=== PATIENT | female | born 1985 | race Caucasian/White ===

== ENCOUNTER 2019-03-25 13:23 | Day surgery (SDC) | payer MEDICAID ==
[2019-03-25] MEDS ORDERED: KETOROLAC 60 MG/2 ML VIAL IM STA (13:38)
--- NOTE | 2019-03-25 13:40 | ED Physician Documentation ---
PD HPI ABD PAIN - Stated complaint Stated Complaint: FEMALE - Chief complaint Chief Complaint: Abd Pain - History obtained from History obtained from: Patient - History of Present Illness Timing - onset: Last night (Previously healthy 33-year-old woman status post tubal ligation about a year ago and with last menses about 2 weeks ago, normal time and normal flow developed sudden onset pelvic pain last night. Pain is worse when she has a bowel movement but her bowel movements have been fairly normal otherwise. No rectal pain. No vaginal discharge or bleeding. She is never had this before. No fevers or chills. Some relief with Tylenol and ibuprofen but incomplete.) Review of Systems Ten Systems: 10 systems reviewed and negative Constitutional: denies: Fever, Chills Cardiac: denies: Chest pain / pressure, Palpitations Respiratory: denies: Dyspnea, Cough PD PAST MEDICAL HISTORY - Allergies Allergies/Adverse Reactions: Allergies Allergy/AdvReac Type Severity Reaction Status Date / Time No Known Drug Allergies Allergy Verified 03/25/19 13:27 PD ED PE NORMAL - Vitals Vital signs reviewed: Yes - General General: Alert and oriented X 3, No acute distress - Neck Neck: Supple, no meningeal sign, No bony TTP - Cardiac Cardiac: RRR, No murmur - Respiratory Respiratory: No respiratory distress, Clear bilaterally - Abdomen Abdomen: Normal bowel sounds, Other (Tenderness in the suprapubic area and left pelvis without surgical signs) - Back Back: No CVA TTP, No spinal TTP - Derm Derm: Normal color, Warm and dry - Neuro Neuro: Alert and oriented X 3, Normal speech Results - Vitals Vitals: Vital Signs - 24 hr 03/25/19 03/25/19 03/25/19 13:27 15:02 16:05 Temperature 36.8 C Heart Rate 80 61 60 Respiratory 15 16 16 Rate Blood Pressure 123/71 109/71 102/64 O2 Saturation 100 100 100 03/25/19 17:50 Temperature Heart Rate 62 Respiratory 16 Rate Blood Pressure 93/76 O2 Saturation 100 Oxygen O2 Source Room air - Labs Labs: Laboratory Tests 03/25/19 03/25/19 03/25/19 13:52 14:01 14:01 WBC 4.4 L RBC 3.56 L Hgb 10.9 L Hct 32.7 L MCV 91.9 MCH 30.6 MCHC 33.3 RDW 12.3 Plt Count 185 MPV 10.2 Neut # (Auto) 2.6 Lymph # (Auto) 1.3 L [place] # (Auto) 0.5 Eos # (Auto) 0.0 Baso # (Auto) 0.0 Absolute Nucleated RBC 0.00 Nucleated RBC % 0.0 Sodium 136 Potassium 3.7 Chloride 105 Carbon Dioxide 22 Anion Gap 9.0 BUN 8 Creatinine 0.7 Estimated GFR (MDRD) 96 Glucose 83 Calcium 9.0 Total Bilirubin 0.9 AST 18 ALT 14 Alkaline Phosphatase 33 L Total Protein 7.3 Albumin 4.4 Globulin 2.9 Albumin/Globulin Ratio 1.5 Lipase 22 HCG, Quant Urine Color YELLOW Urine Clarity CLEAR Urine pH 6.0 Ur Specific [place] 1.010 Urine Protein NEGATIVE Urine Glucose (UA) NEGATIVE Urine Ketones NEGATIVE Urine Occult Blood NEGATIVE Urine Nitrite NEGATIVE Urine Bilirubin NEGATIVE Urine Urobilinogen 0.2 (NORMAL) Ur Leukocyte Esterase NEGATIVE Ur Microscopic Review NOT INDICATED Urine Culture Comments NOT INDICATED Urine HCG, Qual POSITIVE Blood Type Blood Type Recheck Antibody Screen Crossmatch IS Only 03/25/19 03/25/19 03/25/19 14:01 14:43 14:43 WBC RBC Hgb Hct MCV MCH MCHC RDW Plt Count MPV Neut # (Auto) Lymph # (Auto) [place] # (Auto) Eos # (Auto) Baso # (Auto) Absolute Nucleated RBC Nucleated RBC % Sodium Potassium Chloride Carbon Dioxide Anion Gap BUN Creatinine Estimated GFR (MDRD) Glucose Calcium Total Bilirubin AST ALT Alkaline Phosphatase Total Protein Albumin Globulin Albumin/Globulin Ratio Lipase HCG, Quant 2146.00 Urine Color Urine Clarity Urine pH Ur Specific [place] Urine Protein Urine Glucose (UA) Urine Ketones Urine Occult Blood Urine Nitrite Urine Bilirubin Urine Urobilinogen Ur Leukocyte Esterase Ur Microscopic Review Urine Culture Comments Urine HCG, Qual Blood Type Cancelled Blood Type Recheck O NEGATIVE Antibody Screen Cancelled Crossmatch IS Only 03/25/19 03/25/19 15:20 15:41 WBC RBC Hgb Hct MCV MCH MCHC RDW Plt Count MPV Neut # (Auto) Lymph # (Auto) [place] # (Auto) Eos # (Auto) Baso # (Auto) Absolute Nucleated RBC Nucleated RBC % Sodium Potassium Chloride Carbon Dioxide Anion Gap BUN Creatinine Estimated GFR (MDRD) Glucose Calcium Total Bilirubin AST ALT Alkaline Phosphatase Total Protein Albumin Globulin Albumin/Globulin Ratio Lipase HCG, Quant Urine Color Urine Clarity Urine pH Ur Specific [place] Urine Protein Urine Glucose (UA) Urine Ketones Urine Occult Blood Urine Nitrite Urine Bilirubin Urine Urobilinogen Ur Leukocyte Esterase Ur Microscopic Review Urine Culture Comments Urine HCG, Qual Blood Type O NEGATIVE Cancelled Blood Type Recheck Antibody Screen NEGATIVE Cancelled Crossmatch IS Only See Detail - Rads (name of study) Pelvic sono Radiology: EMP read contemporaneously (Right ovarian mass measuring about 4 cm around, no IUP. Free fluid in the pelvis.) Procedures - General procedure General procedure: She was difficult for IV access, I personally placed a 20-gauge IV in the right external jugular after ChloraPrep which corby well and we corby the blood type off of that and flush well. PD MEDICAL DECISION MAKING - ED course ED course: 33-year-old woman with history of tubal ligation presents with pelvic pain, found to have a positive urine test and followed by a serum beta-hCG that was above the discriminatory zone. Ultrasound did not show an IUP and although the radiologist did not think the findings were clearly construction sales representative of an ectopic, the lack of an IUP and the right ovarian mass are very concerning and as such Dr. Kellogg saw her and will take her to the OR. The question of whether or not she should receive RhoGam came up and Dr. Kellogg felt that she should. Dr. Kellogg also requested that we ready blood in case she were to decompensate, although she remained hemodynamically stable here. Departure - Departure Disposition: [facility] Clinical Impression: Ectopic without intrauterine Qualifiers: Location of ectopic : ovarian Laterality: right Qualified Code(s): O00.201 - Right ovarian without intrauterine Condition: Fair
[2019-03-25 14:02] LABS: BILIRUBIN,URINE NEGATIVE (NEGATIVE); GLUCOSE, URINE (UA) NEGATIVE (NEGATIVE); HCG UR QUAL POSITIVE; KETONES,URINE (UA) NEGATIVE (NEGATIVE); LEUKOCYTE ESTERASE, URINE NEGATIVE (NEGATIVE); NITRITE,URINE NEGATIVE (NEGATIVE); OCCULT BLOOD,URINE NEGATIVE (NEGATIVE); PROTEIN,URINE NEGATIVE (NEGATIVE); UROBILINOGEN,URINE 0.2 (NORMAL) E.U./dL (NORMAL)
[2019-03-25 14:03] LABS: CLARITY,URINE CLEAR (CLEAR)
[2019-03-25 14:06] LABS: BASOPHILS % (AUTO) 0.2 %; EOSINOPHILS % (AUTO) 0.5 %; HGB - HEMOGLOBIN 10.9 g/dL (12.0-16.0); LYMPHOCYTES # (AUTO) 1.3 10^3/uL (1.5-3.5); LYMPHOCYTES % (AUTO) 29.1 %; MEAN CORPUSCULAR HEMOGLOBIN 30.6 pg (27.0-31.0); MEAN CORPUSCULAR HGB CONC 33.3 g/dL (32.0-36.0); MEAN CORPUSCULAR VOLUME 91.9 fL (81.0-99.0); MEAN PLATELET VOLUME 10.2 fL (7.9-10.8); MONOCYTES # (AUTO) 0.5 10^3/uL (0.0-1.0); MONOCYTES % (AUTO) 10.5 %; NEUTROPHILS # (AUTO) 2.6 10^3/uL (1.5-6.6); NEUTROPHILS % (AUTO) 59.2 %; PLT - PLATELET COUNT 185 10^3/uL (130-450); RED BLOOD COUNT 3.56 10^6/uL (4.20-5.40); RED CELL DISTRIBUTION WIDTH 12.3 % (12.0-15.0); WHITE BLOOD COUNT 4.4 x10^3/uL (4.8-10.8)
[2019-03-25] MEDS ORDERED: HYDROmorphone 1 MG/ML CARPUJECT IVP STA ×3 (14:18→16:51)
[2019-03-25 14:26] LABS: ALBUMIN 4.4 g/dL (3.2-5.5); ALBUMIN/GLOBULIN RATIO 1.5 (1.0-2.2); BILIRUBIN,TOTAL 0.9 mg/dL (0.2-1.0); CREATININE 0.7 mg/dL (0.4-1.0); TOTAL PROTEIN 7.3 g/dL (6.7-8.2)
[2019-03-25] MEDS ORDERED: RHO(D) IMMUNE GLOBULIN 300 MCG SYRINGE IM STA (16:46)
--- NOTE | 2019-03-25 16:57 | Ultrasound Report ---
Reason: L pelvic pain, pos HCG, post tubal ligation Procedure Date: 03/25/2019 Accession Number: [id number] / [id number] Procedure: US - OB First Trimester CPT Code: Final Report FULL RESULT: EXAM: FIRST TRIMESTER OBSTETRIC ULTRASOUND (Less than 11 weeks) EXAM DATE: 03/25/2019 04:05 PM. CLINICAL HISTORY: L pelvic pain, pos HCG, post tubal ligation. LMP: 03/12/2019. COMPARISONS: None. TECHNIQUE: Transabdominal and transvaginal ultrasound examination with static image documentation. CLINICAL DATES: EGA 1 week 6 days with LINA 12/17/2019 based on LMP. ASSESSMENT: Gestational Sac: None identified. MATERNAL STRUCTURES: Uterus: Anteverted. 9.3 x 5.2 x 6.8 cm. Endometrium 8 mm in thickness and normal in appearance.. Cervix: Closed. Right Ovary/Adnexa: The ovary measures 5.3 x 4.5 x 5.6 cm, volume 70 cc. 4.4 x 4.0 x 4.2 cm complex hemorrhagic appearing cyst with intermediate level diffuse internal echoes and innumerable wispy septations. Left Ovary/Adnexa: The ovary measures 2.3 x 1.5 x 1.9 cm, volume 3.4 cc. Unremarkable. Free Fluid: Minimal posteriorly and in the left adnexa. Other: None. IMPRESSION: 1. No intrauterine gestation is identified. 2. No high risk findings for ectopic gestation. 3. 4 cm complex hemorrhagic-appearing right ovarian cyst which could represent a hemorrhagic follicle or an endometrioma. 4. Correlate with serial quantitative beta hCG. 5. Six-week ultrasound follow-up would be of value to reassess the right adnexa. RADIA
[2019-03-25] MEDS ORDERED: PROPOFOL 200 MG/20 ML VIAL IVP ONE (17:27)
[2019-03-25] MEDS ORDERED: ROCURONIUM 50 MG/5 ML VIAL IVP ONE (17:27)
[2019-03-25] MEDS ORDERED: GLYCOPYRROLATE 1 MG/5 ML VIAL IVP ONE (17:27)
[2019-03-25] MEDS ORDERED: DEXAMETHASONE 4 MG/ML VIAL IVP ONE (17:27)
[2019-03-25] MEDS ORDERED: ACETAMINOPHEN 1,000 MG/100 ML 100 ML IV ONE (17:27)
[2019-03-25] MEDS ORDERED: MIDAZOLAM 2 MG/2 ML VIAL IVP ONE (17:27)
[2019-03-25] MEDS ORDERED: NEOSTIGMINE 1 MG/1 ML 10 ML MDV IVP ONE (17:27)
[2019-03-25] MEDS ORDERED: LIDOCAINE-MPF 2% 5 ML VIAL IM ONE (17:27)
[2019-03-25] MEDS ORDERED: fentaNYL 250 MCG/5 ML VIAL IVP ONE (17:27)
[2019-03-25] MEDS ORDERED: ceFAZolin 2 GM in SODIUM CHLORIDE 0.9% 100ML 100 ML IV STA (17:30)
[2019-03-25] MEDS ORDERED: LIDOCAINE MPF 2%-EPI 1:200000 20 ML VIAL ONE (17:40)
[2019-03-25] MEDS ORDERED: BUPIVACAINE 0.5% PF 30 ML VIAL ONE (17:40)
--- NOTE | 2019-03-25 17:44 | ANESTHESIA ---
Pre-Anesthesia VS, & Labs - Diagnosis Ectopic - Procedure Dx laparoscopy Vital Signs: Temp Pulse Resp BP Pulse Ox 36.8 C 61 16 109/71 100 03/25/19 13:27 03/25/19 15:02 03/25/19 15:02 03/25/19 15:02 03/25/19 15:02 Height 5 ft 6 in Weight (kg) 68.039 kg Body Mass Index 24.2 - NPO >8 hours - Is Patient ?: Yes - Lab Results Current Lab Results: Laboratory Tests 03/25/19 15:20: Blood Type O NEGATIVE, Antibody Screen NEGATIVE 03/25/19 14:43: Blood Type Recheck O NEGATIVE 03/25/19 14:43: Blood Type Cancelled, Antibody Screen Cancelled 03/25/19 14:01: HCG, Quant 2146.00 03/25/19 14:01: Sodium 136, Potassium 3.7, Chloride 105, Carbon Dioxide 22, Anion Gap 9.0, BUN 8, Creatinine 0.7, Estimated GFR (MDRD) 96, Glucose 83, Calcium 9.0, Total Bilirubin 0.9, AST 18, ALT 14, Alkaline Phosphatase 33 L, Total Protein 7.3, Albumin 4.4, Globulin 2.9, Albumin/Globulin Ratio 1.5, Lipase 22 03/25/19 14:01: WBC 4.4 L, RBC 3.56 L, Hgb 10.9 L, Hct 32.7 L, MCV 91.9, MCH 30.6, MCHC 33.3, RDW 12.3, Plt Count 185, MPV 10.2, Neut # (Auto) 2.6, Lymph # (Auto) 1.3 L, [place] # (Auto) 0.5, Eos # (Auto) 0.0, Baso # (Auto) 0.0, Absolute Nucleated RBC 0.00, Nucleated RBC % 0.0 Lab results reviewed: Yes Fish Bones: 03/25/19 14:01 03/25/19 14:01 Home Medications and Allergies Active Medications Cefazolin Sodium 2 gm/ Sodium (Chloride) 100 mls @ 200 mls/hr IV ONCE STA Stop: 03/25/19 17:59 Allergies/Adverse Reactions: Allergies Allergy/AdvReac Type Severity Reaction Status Date / Time No Known Drug Allergies Allergy Verified 03/25/19 13:27 Anes History & Medical History - Anesthetic History Anesthesia Complications: reports: No previous complications Family history of Anesthesia Complications: Denies Family history of Malignant Hyperthermia: Denies - Medical History Cardiovascular: reports: None Pulmonary: reports: None Gastrointestinal: reports: None Urinary: reports: None Neuro: reports: None Musculoskeletal: reports: None Endocrine/Autoimmune: reports: None Blood Disorders: reports: None Skin: reports: None Smoking Status: Never smoker Psychosocial: reports: No issues indicated Exam General: Alert, Oriented x3, Cooperative Dental: WNL Mouth Opening: Greater than 4 Fingerbreadths Neck Mobility: Normal Mallampati classification: I Thyromental Distance: greater than 6 cm Respiratory: Lungs clear Cardiovascular: Regular rate Plan Anesthesia Type: General Consent for Procedure(s) Verified and Reviewed: Yes Code Status: Attempt Resuscitation ASA classification: 1-Healthy patient Is this case an emergency?: Yes
[2019-03-25] MEDS ORDERED: LACTATED RINGERS 1,000 ML IV ONE ×2 (18:08→19:30)
[2019-03-25] MEDS: HYDROmorphone 1 MG/ML CARPUJECT ONE ×4 (20:04→20:30)
[2019-03-25] MEDS ORDERED: LORazepam 2 MG/ML VIAL ONE (20:13)
[2019-03-25] MEDS ORDERED: HYDROmorphone 1 MG/ML CARPUJECT ONE (20:24)
[2019-03-25] MEDS ORDERED: ONDANSETRON 4 MG/2 ML VIAL IVP PRN (20:28)
[2019-03-25] MEDS ORDERED: HYDROmorphone 0.5 MG/0.5 ML SYRINGE IVP PRN (20:28)
[2019-03-25] MEDS ORDERED: LORazepam 2 MG/ML VIAL IVP PRN (20:28)
[2019-03-25] MEDS ORDERED: oxyCODONE 5 MG TABLET PO PRN (20:28)
--- NOTE | 2019-03-25 20:32 | OPERATIVE REPORT ---
Operative Report - General Procedure Date: 03/25/19 Planned Procedure: Laproscopic removal of ectopic , bilateral salpingectomy, Possible right oophorectomy Pre-Op Diagnosis: Ectopic with Hemopertoneum previous Tubal ligation Procedure Performed: Laproscopic removal of right ectopic , bilateral salpingectomy, right oophorectomy Post Op Diagnosis: Right ectopic with Hemopertoneum - Procedure Note Primary Surgeon: Harpal Kellogg MD Anesthesia Provider: Rocky Dougherty CRNA Anesthesia Technique: General ET tube Pathology: Bilateral Tubes adn right ovare with large cyst IV Fluids (mL): 1,300 Estimated Blood Loss (mL): 100 Urine Output (mL): 50 Complications: none
--- NOTE | 2019-03-25 21:34 | PREOP HISTORY & PHYSICAL ---
DATE OF SERVICE: 03/25/2019 Physician: Harpal Kellogg MD IDENTIFICATION: The patient is a 33-year-old G9, P3, EAB 1, SAB 5 ectopic 1. Last menstrual period was 03/12/2019. CHIEF COMPLAINT: Abdominal pain. HISTORY OF PRESENT ILLNESS: The patient states that at 2000 last evening she developed abdominal serg n, which was quite severe in nature. Pain has become progressively worse with time. She relates florina t started in the right lower quadrant. She has a history of having a tubal ligation in 03/2018. She has no history of any other surgeries. She is noted to be Rh negative. PAST MEDICAL HISTORY: The patient denies any hypertensive, diabetic, cardiac or pulmonary disease. PAST SURGICAL HISTORY: Positive for tubal ligation without salpingectomy. She has also had a arthro scopy in the left knee. CURRENT MEDICATIONS: None. ALLERGIES: NONE KNOWN. HABITS: The patient denies use of alcohol, tobacco, street or addictive drugs. Does occasional THC. SOCIAL HISTORY: The patient lives with the father of the baby. They have been life partner for the l ast 5 years. She lives with her children. She works as a homemaker. FAMILY HISTORY: Positive for mother that had a CVA at 36 years of age, secondary to cardiac defect. Her grandparents are positive for cancer, which is lung, as well as lymphoma. REVIEW OF SYSTEMS: The patient denies any problems with her vision, hearing, chronic cough, palpitat ions, nausea, vomiting, joint pain or muscle weakness. PHYSICAL EXAMINATION GENERAL: The patient is a well-developed, well-nourished white female. VITAL SIGNS: Stable at this time. HEENT: Pupils are equal and round. Extraocular muscles intact. Thyroid is not palpably enlarged. HEART: Regular rate and rhythm without murmurs. LUNGS: Lung chambers clear without rales or wheezes. BACK: No spinal or CVA tenderness noted. ABDOMEN: Shows evidence of good bowel sounds; however, there is marked tenderness and rebound in the right lower quadrant. Ultrasound was performed, which showed evidence of a complex cyst in the righ t ovary. She has also had a quantitative hCG which is 2146. IMPRESSION A 33-year-old, G9, P3 female status post tubal ligation with an ectopic . PLAN: We will perform laparoscopic removal of the tubes and ectopic , possible right salpin go-oophorectomy, depending on how the involvement is. The risks and benefits were explained to the p atient including those, but not limited to bleeding, infection, injury to pelvic organs, which includ e the uterus, tubes, ovaries, bowel, bladder and ureters. She is aware of the potential for DVT with PE, as well as postoperative adhesions, which could cause pain, bowel obstruction. TD: 03/25/2019 17:19
[2019-03-25] MEDS ORDERED: oxyCODONE/ACET 5/325 Prepack 4 PO STA (21:41)
[2019-03-25 21:48] VITALS: BP 126/67
--- NOTE | 2019-03-26 02:55 | OPERATIVE REPORT ---
DATE OF SERVICE: 03/25/2019 Physician: Harapl Kellogg MD PREOPERATIVE DIAGNOSES: Ectopic , hemoperitoneum, previous tubal ligation. POSTOPERATIVE DIAGNOSES: Right ectopic , hemoperitoneum, previous tubal ligation, large ovarian cyst. PROCEDURE PERFORMED: Laparoscopic bilateral salpingectomy with right oophorectomy, lavage of the peritoneal cavity. SURGEON: Harpal Kellogg MD PROCEDURE: Following adequate endotracheal anesthesia, the patient was placed in the dorsal lithotomy position in [facility]. At this point, a timeout was performed, at which time concerns were addressed. She was prepped and draped in the usual fashion. A speculum was placed in the vagina. The cervix was visualized, grasped with a single-tooth tenaculum anteriorly, site dilated up to 8 mm. At this point, a HUMI catheter was placed and the balloon inflated. The bulk station operator's gloves were changed and at this point, the subumbilical area was injected with 0.25% Marcaine with 0.50% lidocaine and epinephrine. A #15 blade was used to make an incision and then a 5-mm trocar and sheath were placed under direct visualization. There was evidence of hemoperitoneum upon immediate entry into the abdominal cavity. Two additional ports were placed, both in the left and right lower quadrants following local anesthesia with 0.25% Marcaine with 1% lidocaine and epinephrine. Both of these ports were placed under direct visualization following skin incisions. The pelvis was inspected with the hemoperitoneum noted. The right ovary was noted to be enlarged with the cyst and there was also evidence of what appeared to be an ectopic . There was evidence of previous tubal ligation. The right fallopian tube was then grasped with a Prestige clamp and then, utilizing the LigaSure, was cauterized and divided. This was carried all the way to the previous tubal ligation. Then the proximal portion of the tube was then resected and excised with the LigaSure. The left tube was treated in identical fashion. The ovary was large and felt at risk for torsion; so at this point, it was removed without difficulty. An 11-mm port was then placed in the right lower quadrant. The ovary and right tube were placed in the sac and then a Prestige was used to grasp the left tube and ovary and brought out through the same port. Then, utilizing the EndoCatch bag, the ovary was brought up to the abdominal wall. This was unsuccessful being removed, so the incision was enlarged utilizing a Pean. The tube and ovary from the right side were sent separately for pathology. The left side was also sent. The peritoneal cavity was irrigated with copious amounts of sterile saline. There was no evidence of bleeding from any of the ports. That terminated the procedure. The right lower quadrant port was removed and the incision was closed utilizing 0 Vicryl and a Rishabh-Mira device. This was inspected and noted to have good hemostasis as well as closure. There was no evidence of any bleeding at this time. The ports were then removed and the CO2 was allowed to escape. Both ports as well as the subumbilical site were closed utilizing 4-0 Monocryl subcuticular. Dermabond was then placed. At this point, the instruments were removed from the vagina. The patient tolerated the procedure well and was taken to recovery in stable condition. TD: 03/25/2019 20:44 SMILEY
== END 2019-03-25 22:20 | disposition home or self-care (01) ==
LOC: ED 13:23 → SDS 17:26 → MS3 21:10 → SDS 22:20
PROVIDERS: ATTEND Obstetrics & Gynecology
PROC: 0UB24ZZ Excision of Bilateral Ovaries, Percutaneous Endoscopic Approach (ICD-10-PCS; 2019-03-25)
PROC: 0UB74ZZ Excision of Bilateral Fallopian Tubes, Percutaneous Endoscopic Approach (ICD-10-PCS; 2019-03-25)
PROC: 10T24ZZ Resection of Products of Conception, Ectopic, Percutaneous Endoscopic Approach (ICD-10-PCS; principal; 2019-03-25 17:49)
DX: O00.101 Right tubal pregnancy without intrauterine pregnancy (principal); K66.1 Hemoperitoneum; N83.201 Unspecified ovarian cyst, right side; Z98.51 Tubal ligation status
CPT/HCPCS: 36415; 59151; 76801; 76817; 80053; 81003; 81025; 83690; 84702; 85025; 86850; 86900; 86901; 86920; 88302; 88305; 96372; 96374; 96376; 99284; 99285; A9270; J0131; J1170; J2060; J3010; J7120; 81001; 87086

== ENCOUNTER 2019-10-04 21:46 | Outpatient (CLI) | payer MEDICAID ==
--- NOTE | 2019-10-05 18:54 | Ultrasound Report ---
PROCEDURE: Pelvic w/Transvaginal INDICATIONS: MENORRHAGIA TECHNIQUE: Real-time scanning was performed of the pelvic organs, with image documentation. Additional endovagi nal scanning was necessary due to incomplete visualization of the adnexal and endometrial structures by transabdominal scanning. COMPARISON: None. FINDINGS: Transabdominal scanning: Limited scanning through the kidneys shows no hydronephrosis. No pathologi c free abdominal or pelvic fluid. Endovaginal scanning: Uterus: Uterus is normal in size at 9.1 x 7.5 x 5.9 cm. Uterus overall demonstrates increased vascu larity. The endometrium measures 9.8 mm in combined thickness. Ovaries: Right ovary is not visualized and with given history of surgically removed. Left ovary colleen ures 20 x 27 x 25 mm. Focal area of low echogenicity is identified measuring 18 x 16 x 18 mm. IMPRESSION: Subjective increased diffuse prominence of uterine vascularity. This is overall nonspecific and no fo angelica lesions are identified. No focal fibroids are identified. Reviewed by: Johanna Marquis MD on 10/05/2019 6:53 PM PDT Approved by: Johanna Marquis MD on 10/05/2019 6:53 PM PDT Station ID: [id number]
== END 2019-10-04 21:47 | disposition home or self-care (01) ==
LOC: DI 21:46
PROVIDERS: ATTEND Obstetrics & Gynecology
DX: N92.0 Excessive and frequent menstruation with regular cycle (principal)
CPT/HCPCS: 76830; 76856